=== PATIENT | male | born 1945 | race Caucasian/White ===

== ENCOUNTER 2017-10-02 05:26 | Emergency (ER) | payer MEDICARE ==
[~2017-10-02] VITALS: Ht 177.8 cm; Wt 86.2 kg
[2017-10-02] MEDS ORDERED: GLUCOPHAGE500 MG PO (05:44)
[2017-10-02] MEDS ORDERED: FLOMAX0.4 MG PO (08:51)
[2017-10-02] MEDS ORDERED: NORCO 5-325 TA1 EACH PO (08:51)
== END 2017-10-02 09:05 | disposition home or self-care (01) ==
LOC: ED 05:26
DX: N20.1 Calculus of ureter (principal); N13.4 Hydroureter; I10 Essential (primary) hypertension; E11.9 Type 2 diabetes mellitus without complications; F17.200 Nicotine dependence, unspecified, uncomplicated; Z79.84 Long term (current) use of oral hypoglycemic drugs
CPT/HCPCS: 74177; 80053; 81001; 83690; 85025; 96361; 96374; 96375; 99284; J1885; J2405; J7030; Q9967